=== PATIENT | male | born 1960 | race African-American/Black ===

== ENCOUNTER 2016-10-21 18:52 | Emergency (ER) | payer OTHER ==
--- NOTE | ~2016-10-21 | EKG ---
PATIENT: JOVANNA RAZA UNIT #: [id number] Ventricular Rate: 189 BPM Atrial Rate: 159 BPM QRS Duration: 82 ms Q-T Interval: 260 ms QTC Calculation(Bezet): 461 ms Calculated R [place]: -17 degrees Calculated T [place]: 20 degrees Diagnosis Line: Supraventricular tachycardia Diagnosis Line: Otherwise normal ECG Diagnosis Line: No previous ECGs available Diagnosis Line: Confirmed by SMITA MORRISSEY MD ([id number]) on 10/27/2016 Diagnosis Line: 11:09:08 PM INTERPRETING MD: YUNI LEWIS
--- NOTE | ~2016-10-21 | CT16 ---
[facility] A Service of [facility] RADIOLOGY TEXT RESULTS PATIENT: JOVANNA RAZA LOCATION: SED : 64 UNIT #: [id number] AGE: [address]: Mayra Bowman MD SEX: M ORDER DR: [id number] [place] [id number] E MR#: [id number] Acc #: [id number] NAME: JOVANNA RAZA. : 1960 SEX: M STUDY DATE/TIME: 10/21/2016 22:59 UNIT: SED ROOM: STUDY DESCRIPTION: CT Angio Chest for PE Attending Physician: Mayra Bowman M.D. Ordering Physician: Physician Non-Staff Primary Care Physician: Freddie Vasquez MEDICAL IMAGING REPORT This report is preliminary unless electronic signature is present. ADDENDUM PE protocol chest CT examination was repeated in an attempt to improve pulmonary artery opacification. However, the repeated study is also nondiagnostic with similarly poor contrast opacification of the pulmonary arteries or even the thoracic aorta. There is no visible large pulmonary artery thrombus within the main pulmonary arteries. The remainder of the examination is negative and unchanged since the earlier study. I have discussed the findings and followup recommendations with the ED physician by telephone prior to this dictation. Dictated by... Flakito Alston M.D. THIS IS AN ELECTRONICALLY VERIFIED REPORT Flakito Alston M.D. at 11/09/2016 10:12 PM Moses TD: 10/22/2016 12:56 JOB #: [id number] MEDICAL IMAGING REPORT Page 1 of 1
--- NOTE | ~2016-10-21 | CT16 ---
[facility] A Service of [facility] RADIOLOGY TEXT RESULTS PATIENT: JOVANNA RAZA LOCATION: SED : 64 UNIT #: [id number] AGE: [address]: Mayra Bowman MD SEX: M ORDER DR: [id number] [place] [id number] E MR#: [id number] Acc #: [id number] NAME: JOVANNA RAZA. : 1960 SEX: M STUDY DATE/TIME: 10/21/2016 21:18 UNIT: SED ROOM: STUDY DESCRIPTION: CT Angio Chest for PE Attending Physician: Mayra Bowman M.D. Ordering Physician: Physician Non-Staff Primary Care Physician: Freddie Vasquez MEDICAL IMAGING REPORT This report is preliminary unless electronic signature is present. EXAM CT chest with contrast, pulmonary arteriography protocol, 10/21/2016 HISTORY 56-year-old male in the ED complaining of sudden onset shortness of air with tachycardia and hypertension today prior to arrival. TECHNIQUE CT examination of the chest was performed with IV contrast using pulmonary arteriography protocol. 3-D CTA images of the pulmonary arteries were reformatted in multiple planes. This CT exam was performed with one or more of the following radiation dose reduction techniques: automatic exposure control, adjustment of mA and/or kV according to patient size, and iterative reconstruction. FINDINGS The examination is nondiagnostic for the exclusion of pulmonary embolism due to poor contrast opacification of vascular structures within the chest, including the pulmonary arteries. No large thrombus is present within the main pulmonary arteries or largest central pulmonary arteries. Thoracic aorta is normal in caliber. Heart size is normal, and there is no pericardial effusion. The lungs are expanded and clear. No visible pulmonary infiltrate, pneumothorax or pleural effusion. No mass or adenopathy is seen within the mediastinum or pulmonary carolee. No rib fracture or other chest wall lesion. Limited upper abdominal images show diffuse hepatic steatosis. IMPRESSION [facility] A Service of [facility] RADIOLOGY TEXT RESULTS PATIENT: JOVANNA RAZA LOCATION: SED : 64 UNIT #: [id number] AGE: [address]: Mayra Bowman MD SEX: M ORDER DR: 1. The examination is nondiagnostic for the exclusion of pulmonary embolism due to poor contrast opacification of vascular structures within the chest as noted above. There is no evidence of large pulmonary artery thrombus within the main pulmonary arteries or large hilar pulmonary arteries. 2. No acute abnormality is seen within the chest. The lungs are clear. No pneumothorax, pulmonary infiltrate or pleural effusion. 3. Normal-caliber thoracic aorta. The heart size is normal. No pericardial effusion. 4. Diffuse hepatic steatosis. Dictated by... Flakito Alston M.D. THIS IS AN ELECTRONICALLY VERIFIED REPORT Flakito Alston M.D. at 10/22/2016 10:05 PM Cuco TD: 10/22/2016 12:36 JOB #: [id number] MEDICAL IMAGING REPORT Page 1 of 1
--- NOTE | ~2016-10-21 | CR72 ---
[facility]. [facility] A Service of [facility] & [facility] RADIOLOGY TEXT RESULTS PATIENT: JOVANNA RAZA LOCATION: SED : 64 UNIT #: [id number] AGE: [address]: Mayra Bowman MD SEX: M ORDER DR: [id number] [place] [id number] E MR#: [id number] Acc #: [id number] NAME: JOVANNA RAZA. : 1960 SEX: M STUDY DATE/TIME: 10/21/2016 18:58 UNIT: SED ROOM: STUDY DESCRIPTION: CR Chest Single View Portable Attending Physician: Mayra Bowman M.D. Ordering Physician: Surendra Rosas M.D. Primary Care Physician: Freddie Vasquez MEDICAL IMAGING REPORT This report is preliminary unless electronic signature is present. EXAM Portable chest HISTORY Tachycardia, shortness of air. FINDINGS The cardiac size and pulmonary vascularity are normal. No infiltrates or effusions. Remainder of the test is negative. IMPRESSION Negative. Dictated by... Lawrence Murdock M.D. THIS IS AN ELECTRONICALLY VERIFIED REPORT Lawrence Murdock M.D. at 10/22/2016 9:03 PM DFL/df TD: 10/22/2016 12:11 JOB #: [id number] MEDICAL IMAGING REPORT Page 1 of 1
--- NOTE | ~2016-10-21 | EKG ---
PATIENT: JOVANNA RAZA UNIT #: [id number] Ventricular Rate: 105 BPM Atrial Rate: 105 BPM P-R Interval: 122 ms QRS Duration: 72 ms Q-T Interval: 330 ms QTC Calculation(Bezet): 436 ms P [place]: 38 degrees Calculated R [place]: -20 degrees Calculated T [place]: 2 degrees Diagnosis Line: Sinus tachycardia Diagnosis Line: Inferior infarct , age undetermined Diagnosis Line: Poor R wave progression questionable lead position Diagnosis Line: or body habitus Diagnosis Line: Abnormal ECG Diagnosis Line: When compared with ECG of 21-OCT-2016 18:37, Diagnosis Line: (unconfirmed) Diagnosis Line: Vent. rate has decreased BY 84 BPM Diagnosis Line: Non-specific change in ST segment in Lateral leads Diagnosis Line: Confirmed by SMITA MORRISSEY MD ([id number]) on 10/27/2016 Diagnosis Line: 11:09:25 PM INTERPRETING MD: YUNI LEWIS
[~2016-10-21 18:52] MED LIST: LORTAB 5/500 TA1 TA2 PO
[2016-10-21] MEDS ORDERED: TANZEUM30 MG/0.5 (18:55)
[2016-10-21] MEDS ORDERED: JARDIANCE10 MG PO (18:56)
[2016-10-21 18:59] LABS: BASOPHIL# 0.1 X10e3 (0-0.3); BASOPHIL% 1.4 % (0-2.5); EOSINOPHIL# 0.2 X10e3 (0-0.7); HEMATOCRIT 53.7 % (38.0-50.0); HEMOGLOBIN 17.7 gm/dL (13.0-16.0); LYMPHOCYTE# 3.7 X10e3 (1.0-3.5); MEAN CELL VOLUME 92.7 FL (83-96); MEAN CORPUSCULAR HEMOGLOBIN 30.4 PG (28-34); MEAN CORPUSCULAR HGB CONC 32.8 g/dL (30-36); MEAN PLATELET VOLUME 8.3 FL (6.5-11.5); MONOCYTE# 0.6 X10e3 (0-1.0); NEUTROPHIL# 4.2 X10e3 (1.5-7.1); NEUTROPHIL% 47.6 % (40-75); PLATELET COUNT 238 X10e3 (140-420); WHITE BLOOD COUNT 8.8 X10e3 (4.0-10.5)
[2016-10-21 19:00] LABS: DIFF IND NO
[2016-10-21 19:09] LABS: POC - CKMB 1.5 ng/mL (0.0-7.9); POC - MYOGLOBIN 93.7 ng/mL (0.0-169.0); POC - TROPONIN <0.05 ng/mL (<=0.05)
[2016-10-21 19:10] LABS: ALBUMIN SERUM 4.8 g/dL (3.5-5.0); ALKALINE PHOSPHATASE 78 U/L (32-92); ALT (SGPT) 33 U/L (10-40); AST (SGOT) 37 U/L (10-42); BLOOD UREA NITROGEN 20 mg/dL (9-23); CALCIUM SERUM 9.6 mg/dL (8.4-10.2); CARBON DIOXIDE 26 mmol/L (22-31); CHLORIDE 101 mmol/L (100-111); GLOM FILT RATE Estimated ABOVE60 mL/min (>60); GLUCOSE FASTING 298 mg/dL (70-110); POTASSIUM 4.2 mmol/L (3.5-5.1); PROTEIN TOTAL SERUM 7.9 g/dL (6.0-8.3); SODIUM 136 mmol/L (135-145)
== END 2016-10-21 23:46 | disposition home or self-care (01) ==
LOC: SED 18:52
PROVIDERS: Emergency Medicine
DX: I47.2 Ventricular tachycardia (principal); Z88.8 Allergy status to other drugs, medicaments and biological substances; Z79.899 Other long term (current) drug therapy
CPT/HCPCS: 36415; 71010; 71275; 80053; 82553; 83874; 84443; 84484; 85025; 85379; 93005; 96374; 96375; 99284; J0153; Q9967

== ENCOUNTER 2016-12-07 12:06 | Emergency (ER) | payer OTHER ==
--- NOTE | ~2016-12-07 | CR281 ---
[facility] A Service [facility] RADIOLOGY TEXT RESULTS PATIENT: JOVANNA RAZA LOCATION: SED : 64 UNIT #: [id number] AGE: [address]: HUBERT THOMPSON PA-C SEX: M ORDER DR: [id number] [address] [address] [id number] E MR#: [id number] Acc #: [id number] NAME: JOVANNA RAZA. : 1960 SEX: M STUDY DATE/TIME: 12/07/2016 12:07 UNIT: SED ROOM: STUDY DESCRIPTION: CR Wrist Min 3 View Lt Attending Physician: Hubert Thompson Pa-C Ordering Physician: Hubert Thompson Pa-C Primary Care Physician: Freddie Vasquez MEDICAL IMAGING REPORT This report is preliminary unless electronic signature is present. EXAM Left wrist 12/07/2016 HISTORY 56-year-old male with left wrist pain status post fall last night. COMPARISON None FINDINGS 3 views of the left wrist demonstrate a minimally impacted transverse oblique fracture of the distal radial metaphysis. Minimal comminution of the dorsal cortex of the distal radius. There is mild straightening of the distal radius. No dislocation. Mild ulna minus variance incidentally noted. Mild soft tissue swelling around the wrist. IMPRESSION 1. Minimally impacted transverse oblique fracture of the distal radial metaphysis. No evidence of articular surface disruption. 2. Mild ulna minus variance. Dictated by... Dioni Matthews M.D. THIS IS AN ELECTRONICALLY VERIFIED REPORT Dioni Matthews M.D. at 12/08/2016 4:46 PM BIRD/jevon TD: 12/07/2016 15:25 JOB #: [id number] [facility] A Service [facility] RADIOLOGY TEXT RESULTS PATIENT: JOVANNA RAZA LOCATION: SED : 64 UNIT #: [id number] AGE: [address]: HUBERT THOMPSON PA-C SEX: M ORDER DR: MEDICAL IMAGING REPORT Page 1 of 1
[~2016-12-07 12:06] MED LIST changes: +JARDIANCE10 MG PO; +TANZEUM30 MG/0.5
== END 2016-12-07 12:55 | disposition home or self-care (01) ==
LOC: SED 12:06
DX: S52.592A Other fractures of lower end of left radius, initial encounter for closed fracture (principal); H11.31 Conjunctival hemorrhage, right eye; W10.9XXA Fall (on) (from) unspecified stairs and steps, initial encounter; Y92.009 Unspecified place in unspecified non-institutional (private) residence as the place of occurrence of the external cause; E11.9 Type 2 diabetes mellitus without complications; I10 Essential (primary) hypertension; Z88.8 Allergy status to other drugs, medicaments and biological substances
CPT/HCPCS: 29125; 73110; 99283

== ENCOUNTER 2017-01-06 20:49 | Emergency (ER) | payer OTHER ==
--- NOTE | ~2017-01-06 | EKG ---
PATIENT: JOVANNA RAZA UNIT #: [id number] Ventricular Rate: 104 BPM Atrial Rate: 104 BPM P-R Interval: 164 ms QRS Duration: 86 ms Q-T Interval: 346 ms QTC Calculation(Bezet): 454 ms P [place]: 36 degrees Calculated R [place]: -19 degrees Calculated T [place]: 14 degrees Diagnosis Line: Sinus tachycardia Diagnosis Line: Otherwise normal ECG Diagnosis Line: No previous ECGs available Diagnosis Line: Confirmed by SHAAN DEGROOT MD ([id number]) on Diagnosis Line: 01/07/2017 10:51:43 AM INTERPRETING MD: MIKAYLA LEWIS
--- NOTE | ~2017-01-06 | CR72 ---
[facility]. [facility] A Service of [facility] & [facility] RADIOLOGY TEXT RESULTS PATIENT: JOVANNA RAZA LOCATION: SED : 64 UNIT #: [id number] AGE: [address]: Alexandre Tavares MD SEX: M ORDER DR: [id number] [place] [address] [id number] E MR#: [id number] Acc #: [id number] NAME: JOVANNA RAZA. : 1960 SEX: M STUDY DATE/TIME: 01/06/2017 21:59 UNIT: SED ROOM: STUDY DESCRIPTION: CR Chest Single View Portable Attending Physician: Alexandre Tavares M.D. Ordering Physician: Alexandre Tavares M.D. Primary Care Physician: Freddie Vasquez MEDICAL IMAGING REPORT This report is preliminary unless electronic signature is present. EXAM Portable chest HISTORY Heart palpitations today. FINDINGS Cardiac and mediastinal contours are normal. No infiltrates or effusions. IMPRESSION Negative chest. Dictated by... Lawrence Murdock M.D. THIS IS AN ELECTRONICALLY VERIFIED REPORT Lawrence Murdock M.D. at 01/07/2017 5:29 PM LAZARUS/keke TD: 01/07/2017 02:04 JOB #: [id number] MEDICAL IMAGING REPORT Page 1 of 1
[2017-01-06] MEDS ORDERED: LOPRESSOR PO (21:06)
[2017-01-06] MEDS ORDERED: ALLERGY MED (21:06)
[2017-01-06] MEDS ORDERED: METFORMIN PO (21:07)
[2017-01-06 21:15] LABS: BASOPHIL# 0.1 X10e3 (0-0.3); BASOPHIL% 1.3 % (0-2.5); DIFF IND NO; EOSINOPHIL# 0.3 X10e3 (0-0.7); EOSINOPHIL% 3.2 % (0.0-7.0); HEMATOCRIT 44.9 % (38.0-50.0); HEMOGLOBIN 15.3 gm/dL (13.0-16.0); LYMPHOCYTE% 43.1 % (17.0-45.0); MEAN CORPUSCULAR HEMOGLOBIN 31.6 PG (28-34); MONOCYTE# 0.7 X10e3 (0-1.0); MONOCYTE% 7.9 % (3.0-12.0); NEUTROPHIL# 4.2 X10e3 (1.5-7.1); NEUTROPHIL% 44.5 % (40-75); PLATELET COUNT 238 X10e3 (140-420); RED BLOOD COUNT 4.83 X10e (3.90-5.60); WHITE BLOOD COUNT 9.4 X10e3 (4.0-10.5)
[2017-01-06 21:32] LABS: ALBUMIN SERUM 4.2 g/dL (3.5-5.0); BILIRUBIN, DIRECT 0.1 mg/dL (0.0-0.2); BILIRUBIN,INDIRECT 0.4 mg/dL (0.0-0.9); BILIRUBIN,TOTAL 0.5 mg/dL (0.2-2.0); BUN/CREATININE RATIO 17.5; CREATININE SERUM 0.8 mg/dL (0.6-1.4); GLOM FILT RATE Estimated 117.4 mL/min (>60); MAGNESIUM 1.9 mg/dL (1.6-3.0); POTASSIUM 3.7 mmol/L (3.5-5.1); PROTEIN TOTAL SERUM 7.3 g/dL (6.0-8.3)
[2017-01-06 21:32] LABS: POC - CKMB <1.0 ng/mL (0.0-7.9); POC - TROPONIN <0.05 ng/mL (<=0.05)
[2017-01-06 21:40] LABS: PROTHROMBIN TIME (PATIENT) 11.5 SECONDS (9.5-12.4)
[2017-01-06 21:47] LABS: PARTIAL THROMBOPLASTIN TIME 26.9 SECONDS (25.6-38.1)
[2017-01-06 22:55] LABS: POC - CKMB <1.0 ng/mL (0.0-7.9); POC - TROPONIN <0.05 ng/mL (<=0.05)
== END 2017-01-07 00:27 | disposition home or self-care (01) ==
LOC: SED 20:49
PROVIDERS: Emergency Medicine
DX: I47.1 Supraventricular tachycardia (principal); Z79.899 Other long term (current) drug therapy; Z88.8 Allergy status to other drugs, medicaments and biological substances; Z88.2 Allergy status to sulfonamides
CPT/HCPCS: 36415; 71010; 80048; 80076; 82553; 83735; 84443; 84484; 85025; 85610; 85730; 93005; 96365; 96375; 96376; 99284; J0153

== ENCOUNTER 2017-02-07 08:54 | Observation (INO) | payer OTHER ==
--- NOTE | ~2017-02-07 | CR72 ---
[facility] A Service [facility] RADIOLOGY TEXT RESULTS PATIENT: JOVANNA RAZA LOCATION: [facility] 322-01 : [birth year] UNIT #: [id number] AGE: [address]: Sarika Parsons MD SEX: M ORDER DR: [id number] [address] [address] [id number] E MR#: [id number] Acc #: [id number] NAME: JOVANNA RAZA. : 1960 SEX: M STUDY DATE/TIME: 02/07/2017 9:21 UNIT: SED ROOM: STUDY DESCRIPTION: CR Chest Single View Portable Attending Physician: Bridgette Hudson M.D. Ordering Physician: Bridgette Hudson M.D. Primary Care Physician: Freddie Vasquez MEDICAL IMAGING REPORT This report is preliminary unless electronic signature is present. EXAM Chest x-ray, single-view portable. HISTORY Chest pain, palpitations, starting yesterday, possible SVT per patient after seeing the microsoft dynamics developer yesterday. Essential hypertension, diabetes, gastroesophageal reflux disease and alcohol use. COMMENT Single frontal portable view of the chest timed 9:21, 02/07/2017 reviewed. COMPARISON There is a comparison study from 01/06/2017. FINDINGS There is normal cardiac silhouette size allowing for lordotic film positioning. No acute-appearing parenchymal infiltrate, acute congestive failure, pneumothorax or pleural effusion is suspected. IMPRESSION Allowing for lordotic film positioning, no active disease is seen in the chest. Dictated by... Mary Magana M.D. THIS IS AN ELECTRONICALLY VERIFIED REPORT Mary Magana M.D. at 02/08/2017 7:24 AM JUAN DIEGO/saima TD: 02/07/2017 19:20 [facility] RADIOLOGY TEXT RESULTS PATIENT: JOVANNA RAZA LOCATION: [facility] 322-01 : [birth year] UNIT #: [id number] AGE: [address]: Sarika Parsons MD SEX: M ORDER DR: JOB #: [id number] MEDICAL IMAGING REPORT Page 1 of 1
--- NOTE | ~2017-02-07 | EKG ---
PATIENT: JOVANNA RAZA UNIT #: [id number] Ventricular Rate: 103 BPM Atrial Rate: 103 BPM P-R Interval: 156 ms QRS Duration: 84 ms Q-T Interval: 324 ms QTC Calculation(Bezet): 424 ms P [place]: 36 degrees Calculated R [place]: -18 degrees Calculated T [place]: 7 degrees Diagnosis Line: Sinus tachycardia Diagnosis Line: Otherwise normal ECG Diagnosis Line: When compared with ECG of 06-JAN-2017 22:17, Diagnosis Line: No significant change was found Diagnosis Line: Confirmed by NI ESCALANTE MD ([id number]) on Diagnosis Line: 02/09/2017 5:09:29 PM INTERPRETING MD: DEV
--- NOTE | ~2017-02-07 | ST ---
Unit #: [id number] #: [id number] Patient: JOVANNA RAZA [id number] [address] [address] [id number] I MR#: [id number] NAME: JOVANNA RAZA : 1960 SEX: M STUDY DATE/TIME: 02/08/2017 UNIT: C3A PCU ROOM: [facility] STUDY DESCRIPTION: Stress test Attending Physician: Kyler Parsons M.D. Primary Care Physician: Freddie Vasquez CARDIOLOGY REPORT PROCEDURE Baseline EKG - Normal sinus rhythm with ventricular rate 92 beats per minute, low voltage in V1 and V3-V6, mild left atrial abnormality. The patient walked on the treadmill for 9 minutes utilizing the Sean protocol, achieving a workload of 10.4 METS. He achieved 96% of the maximum target heart rate at 160 beats per minute with a maximum blood pressure response of 150/90 mmHg. EKG during the test did not show anything acute, rare premature ventricular complex. The patient had no complaints of chest pain, palpitations or dizziness. Had increased shortness of breath and fatigue, which resolved in the recovery phase. IMPRESSION 1. Functional class 3 with a workload of 10.4 METS. 2. Patient walked for 9 minutes, achieving 96% of maximum target heart rate at 160 beats per minute with a maximum blood pressure response of 150/90 mmHg. 3. EKG during the test was equivocal to baseline, some nonspecific ST-T wave abnormalities in the lateral leads; otherwise, unremarkable. Rare premature ventricular complex. 4. The patient had no complaints of chest pain, palpitations or dizziness. Had increased shortness of breath and fatigue, which resolved in recovery phase. 5. It was noted the patient's heart rate stayed up into the 120s seven minutes into recovery. He was asymptomatic. 6. Cardiolite was injected at maximum target heart rate. Radionuclide test pending. Please correlate with nuclear images. Dictated by... Oliva Tillman A.P.R.N. for Adilson Richey/db TD: 02/09/2017 07:39 JOB #: [id number] Unit #: [id number] #: [id number] Patient: JOVANNA RAZA CARDIOLOGY REPORT Page 1 of 1 X Oliva Tillman APRN CARDIOLOGY REPORT
--- NOTE | ~2017-02-07 | TH ---
Unit #: [id number] #: [id number] Patient: JOVANNA RAZA [id number] [address] [address] [id number] I MR#: [id number] NAME: JOVANNA RAZA. : 1960 SEX: M STUDY DATE/TIME: UNIT: C3A PCU ROOM: [facility] STUDY DESCRIPTION: Nuclear Study Attending Physician: Kyler Parsons M.D. Primary Care Physician: Freddie Vasquez CARDIOLOGY REPORT EXAM Cardiolite Stress DESCRIPTION The patient received 10.1 mCi of Cardiolite and 34.5 mCi of Cardiolite following stress. Tomographic slices were obtained. Images processed in the short axis, vertical and horizontal long axis views. Gated images were used to assess LV ejection fraction. Review of rotating raw data reveals no significant motion artifact. There is some degree of soft tissue attenuation artifact inferiorly. Post stress images revealed left ventricular cavity size to be normal. Tracer uptake is relatively homogeneous. Resting images likewise revealed homogeneous uptake of tracer. By gated SPECT imaging, wall motion is normal with normal systolic wall thickening. Gated ejection fraction is 57%. IMPRESSION 1. Normal Cardiolite perfusion scan. 2. No evidence of prior infarction. 3. No focal areas of stress-induced ischemia. 4. Normal left ventricular wall motion by gated SPECT imaging with a normal ejection fraction as described. RECOMMENDATIONS This study suggested low probability for significant coronary artery disease as the cause for the patient's symptoms. While there is very mild reversibility in the inferobasal wall, I suspect this is mostly due to attenuation artifact rather than presence of any true ischemia. Consider further workup only if clinically indicated. Dictated by... Adilson Richey/dat TD: 02/08/2017 12:44 Unit #: [id number] #: [id number] Patient: JOVANNA RAZA JOB #: [id number] CARDIOLOGY REPORT Page 1 of 1 X Sarika Parsons MD CARDIOLOGY REPORT
--- NOTE | ~2017-02-07 | HP ---
Unit #: [id number] #: [id number] Patient: JOVANNA SESAY [id number] [facility] [address] [place], [place] [address] [id number] I MR#: [id number] NAME: JOVANNA SESAY. ROOM: 322 Age: 57 Sex: M Admission Date: 02/07/2017 : 1960 Attending Physician: Kyler Parsons M.D. Primary Care Physician: Freddie Vasquez HISTORY AND PHYSICAL HISTORY OF PRESENT ILLNESS This is a 57-year-old male with history of hypertension, diabetes mellitus, history of supraventricular tachycardia (he has been seeing Dr. Dewitt), and occasional alcohol use, who came to the emergency room after having an episode at work. He said he felt his heart racing and some chest pressure. He got a little light-headed, dizzy, slight shortness of breath. He denies any syncopal episodes. No nausea, vomiting, diarrhea or abdominal pain. No recent cough, fever or chills. He denied any radiation of the chest pressure up into his neck, bilateral jaws, shoulders, arms or elbow. He reported that he had similar spells the last few months. One time he went to the emergency room he had to get some IV medications to slow his heart rate down and he has seen Dr. Dewitt twice in the office, which the last visit was yesterday. Dr. Dewitt a few weeks ago had put him on metoprolol twice daily, but he told him that he cut down the dose because he was feeling weak and tired, so he has only been on metoprolol 25 mg daily. 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 He said as he was walking up and down the [place] passing medications that he started feeling this fluttering and racing in his chest; he said it just persisted. He sat down and tried to rest a while. He said it lasted about 35 minutes. He did take two baby aspirin. As mentioned, no radiation of the pain. He said similar episodes as he had in the past for the treatment and was told he had supraventricular tachycardia. The patient was at [facility] and he was stabilized and sent over to [facility] for further evaluation and management. EKG initially was sinus tachycardia, heart rate 103 beats per minute. The patient reports that he took his pulse at work and it was about 180 beats per minute. There is no indication in the emergency room that his heart rate was that elevated. PAST MEDICAL HISTORY 1. Hypertension 2. Diabetes mellitus type 2 3. Gastroesophageal reflux disease 4. Seizures as a child 5. History of supraventricular tachycardia, follows with Dr. Dewitt, is on a beta fady 6. Occasional alcohol use 7. Nonsmoker 8. No stress or cardiac catheterization in the past PAST SURGICAL HISTORY Umbilical hernia repair Unit #: [id number] #: [id number] Patient: JOVANNA SESAY HOME MEDICATIONS 1. Metoprolol succinate 25 mg one tablet p.o. daily 2. Zyrtec 10 mg one tablet p.o. daily 3. Jardiance 10 mg one tablet p.o. daily 4. Metformin 1000 mg one tablet twice daily ALLERGIES No known drug allergies. SOCIAL HISTORY The patient lives with his spouse. 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 He has been a lifelong nonsmoker. No illicit drug use, but does drink occasional alcoholic beverage, about 2-3 times a week, nothing excessive. FAMILY HISTORY His mother of lung cancer. His father became septic, but he was a diabetic. No significant heart disease with his siblings. REVIEW OF SYSTEMS CONSTITUTIONAL: Denies fever or chills. No recent weight gain or weight loss. HEENT: Denies headache, had some lightheadedness with the palpitations and heart racing today. Denies visual or hearing changes. No lymphadenopathy or thyromegaly. No difficulty swallowing. CARDIOVASCULAR: Chest pressure, chest tightness and palpitations and heart racing. Denies increased lower extremity edema. PULMONARY: Increased shortness of breath with heart racing and palpating. Denies paroxysmal nocturnal dyspnea or orthopnea GI: Denies nausea, vomiting or diarrhea or abdominal pain. NEUROLOGICAL: No focal weakness. PHYSICAL EXAMINATION GENERAL: On exam, Mr. Sesay is a 57-year-old white male in no acute respiratory distress. He is awake, alert and oriented. VITAL SIGNS: Blood pressure on admission is 146/113 mmHg, now he is 160/70, heart rate is 88, respirations 18, temperature 97.3, O2 saturations 96% on room air. NECK: Trachea midline. No thyromegaly or lymphadenopathy. Normal carotid upstrokes. No jugular venous distention. HEART: S1, S2. Regular rate and rhythm. No clicks, murmurs or rubs. LUNGS: Bilaterally clear throughout. No wheezes, rales or rhonchi. ABDOMEN: Obese, soft, nontender. Bowel sounds present. No hepatosplenomegaly. EXTREMITIES: Pedal pulses are palpable. No pedal edema. DIAGNOSTIC STUDIES LABORATORY: Glucose 191, BUN 24, creatinine 0.9, eGFR 111.0, sodium 136, potassium 4.3, chloride 104, CO2 of 23, calcium 9.5, magnesium 2.2, total protein 8.0, albumin 4.6, bilirubin total 0.5, AST 27, ALT 27, alkaline phosphatase 71. TSH 1.38. WBC 5.7, hemoglobin 16.5, hematocrit 49.6, platelets 230,000. Initial cardiac enzymes: CKMB 2, troponin less than 0.05, CKMB is 1.3, troponin less than 0.05, INR 1.1. IMAGING: Chest x-ray preliminary report is pending. Unit #: [id number] #: [id number] Patient: JOVANNA SESAY CARDIOVASCULAR: EKG shows sinus tachycardia with a heart rate of 103 beats per minute, questionable Q-wave in V1. Otherwise, unremarkable. Poor R-wave progression. IMPRESSION 1. Palpitations, heart racing. 2. History of supraventricular tachycardia. 3. Hypertension. 4. Diabetes mellitus type 2. 5. Occasional alcohol use. 6. Seizures as a child. 7. Gastroesophageal reflux disease. PLAN 1. Continue to monitor cardiac enzymes and EKG. If they remain negative, we will proceed with an exercise Cardiolite stress test to further evaluate for ischemic heart disease. 2. Increase his beta fady to 25 mg twice daily. We will use the metoprolol tartrate to help with management of his supraventricular tachycardia. 3. Obtain a fasting lipid profile and evaluate. 4. The patient's TSH level is 1.38, which is normal. We will add aspirin and daily Lovenox and deep venous thrombosis prophylaxis to the regimen. 5. On exam, there are no signs or symptoms of acute congestive heart failure. 6. Further recommendations pending per Dr. Parsons. Dictated by Oliva Tillman, [place].P.R.N. for Kyler Parsons M.D. SHELL/ting TD: 02/08/2017 11:50 JOB #: [id number] HISTORY AND PHYSICAL Page 1 of 1 X Oliva Tillman APRN X HISTORY AND PHYSICAL
[~2017-02-07 08:54] MED LIST changes: +ALLERGY MED; +LOPRESSOR PO; +METFORMIN PO
[2017-02-07 09:40] LABS: BASOPHIL% 0.8 % (0-2.5); EOSINOPHIL# 0.2 X10e3 (0-0.7); EOSINOPHIL% 2.9 % (0.0-7.0); HEMATOCRIT 49.6 % (38.0-50.0); HEMOGLOBIN 16.5 gm/dL (13.0-16.0); LYMPHOCYTE# 2.2 X10e3 (1.0-3.5); LYMPHOCYTE% 38.9 % (17.0-45.0); MEAN CELL VOLUME 94.5 FL (83-96); MEAN CORPUSCULAR HEMOGLOBIN 31.5 PG (28-34); MEAN CORPUSCULAR HGB CONC 33.3 g/dL (30-36); MEAN PLATELET VOLUME 7.8 FL (6.5-11.5); MONOCYTE# 0.4 X10e3 (0-1.0); MONOCYTE% 7.4 % (3.0-12.0); NEUTROPHIL# 2.9 X10e3 (1.5-7.1); PLATELET COUNT 230 X10e3 (140-420); RED BLOOD COUNT 5.25 X10e (3.90-5.60); RED CELL DISTRIBUTION WIDTH 13.2 % (11.0-15.5); WHITE BLOOD COUNT 5.7 X10e3 (4.0-10.5)
[2017-02-07 09:41] LABS: DIFF IND NO
[2017-02-07 09:48] LABS: INR 1.1; PROTHROMBIN TIME (PATIENT) 11.9 SECONDS (9.5-12.4)
[2017-02-07 09:51] LABS: POC - TROPONIN <0.05 ng/mL (<=0.05)
[2017-02-07 09:55] LABS: PARTIAL THROMBOPLASTIN TIME 27.2 SECONDS (25.6-38.1)
[2017-02-07 09:58] LABS: ALBUMIN SERUM 4.6 g/dL (3.5-5.0); BILIRUBIN, DIRECT 0.1 mg/dL (0.0-0.2); BILIRUBIN,INDIRECT 0.4 mg/dL (0.0-0.9); BILIRUBIN,TOTAL 0.5 mg/dL (0.2-2.0); BUN/CREATININE RATIO 26.66; CALCIUM SERUM 9.5 mg/dL (8.4-10.2); CREATININE SERUM 0.9 mg/dL (0.6-1.4); MAGNESIUM 2.2 mg/dL (1.6-3.0); POTASSIUM 4.3 mmol/L (3.5-5.1)
[2017-02-07 11:37] LABS: POC - CKMB 1.3 ng/mL (0.0-7.9); POC - TROPONIN <0.05 ng/mL (<=0.05)
[2017-02-07] MEDS ORDERED: ZYRTEC10 M1 PO (17:29)
[2017-02-07] MEDS ORDERED: JARDIANCE10 MG PO (17:30)
[2017-02-07 19:46] LABS: %MB 1.2 % (0.0-4.0); MB 2.2 ng/ml
[2017-02-08 07:45] LABS: %MB 1.3 % (0.0-4.0); MB 1.8 ng/ml
[2017-02-08] MEDS ORDERED: ASPIRIN81 MG PO (11:02)
== END 2017-02-08 11:42 | disposition home or self-care (01) | DRG 310 ==
LOC: SED 08:54 → C3A PCU 14:35 → SED 14:35 → C3A PCU 14:35
PROVIDERS: Emergency Medicine; Nurse Practitioner
DX: R00.2 Palpitations (principal); R07.89 Other chest pain; I10 Essential (primary) hypertension; E11.9 Type 2 diabetes mellitus without complications; Z79.84 Long term (current) use of oral hypoglycemic drugs; K21.9 Gastro-esophageal reflux disease without esophagitis; Z86.69 Personal history of other diseases of the nervous system and sense organs
CPT/HCPCS: 36415; 71010; 78452; 80048; 80061; 80076; 82550; 82553; 82947; 83735; 84443; 84484; 85025; 85610; 85730; 93005; 93017; 93306; 96372; 99285; A9500; G0378; J1650; J1815